=== PATIENT | female | born 1985 | race Caucasian/White ===

== ENCOUNTER → 2022-12-29 | Outpatient (CLI) | payer BC ==
--- NOTE | 2022-12-29 10:13 | MM ---
Reason for Exam: Clinical finding. Indicated Problems: Pain of the right side (Focal) for 6 Week(s) : 10 oclock. Patient History: Menarche at age 11. First Full-Term at age 22. Patient has history of breast feeding. Maternal grandmother had breast cancer, age 48. Last menstrual period: 12/22/2022 Risk Values: Allison 5 year model risk: 0.4%. NCI Lifetime model risk: 10.0%. Tissue Density: There are scattered fibroglandular densities. Findings: Analyzed By CAD. There is slight increased asymmetric density in the anterior lateral left breast. There is a group of punctate calcifications in the 6:00 position anterior right breast 2 cm from the nipple. Magnification views were obtained. Right mediolateral view was obtained. Stereotactic core biopsy is recommended. Overall Assessment: Suspicious, BI-RAD 4 Management: Stereotactic Core Biopsy of the right breast. A negative mammogram report should not preclude additional follow up of suspicious palpable abnormalities. Patient should continue monthly self breast exam. A clinical breast exam by your physician is recommended on an annual basis and results should be correlated with mammographic findings. Electronically signed and approved by: Alexander Owen D.O. Radiologis
== END | disposition home or self-care (01) ==
LOC: RADMAMWWP 09:18
PROVIDERS: ATTEND Family Medicine
DX: R92.8 Other abnormal and inconclusive findings on diagnostic imaging of breast (principal); N63.12 Unspecified lump in the right breast, upper inner quadrant; Z80.3 Family history of malignant neoplasm of breast
CPT/HCPCS: 77062; 77066

== ENCOUNTER → 2023-01-20 | Outpatient (CLI) | payer BC ==
[2023-01-20 07:38] VITALS: BP 134/97; PULSE 90; RESP 17; TEMP 98.9
--- NOTE | 2023-01-20 08:23 | P.PCN ---
Date of Procedure: 01/20/23 Preoperative Diagnosis: Microcalcifications of concern right breast Postoperative Diagnosis: Same/radiograph of the specimen reveals microcalcifications of concern Procedure(s) Performed: Right breast stereotactic core biopsy Anesthesia: local Surgeon: Lynn Lo Pathology: other (Right breast tissue) Condition: stable Disposition: same day Indications for Procedure: Microcalcifications of concern right breast Operative Findings: Radiographic specimen reveals microcalcifications of concern Description of Procedure: The patient was seen and examined; risk of the procedure were discussed with the patient. She wished to proceed with a right breast stereotactic core biopsy. The patient was taken to the stereotactic core biopsy room. She was positioned prone on the low rad table. The lesion was in the inferior lateral aspect of the right breast. A lateral to medial approach was utilized. A thermodynamics engineer film was obtained. The lesion of concern was identified. The lesion was targeted. The breast was prepped using Betadine. 10 mL of 1% lidocaine and 20 mL of 0.5% lidocaine were used to anesthetize the area of concern. A 9-gauge vacuum- assisted core attained biopsy needle was driven to the correct coordinates. A prefire film was obtained. The needle was noted to be in the correct location. The needle was fired. A post fire film was obtained. The needle was noted to be in the correct location. 14 core biopsy specimens were obtained. The specimen was radiographed. The microcalcifications of concern were noted to be in the specimen. A secure shon top hat clip was placed. Radiograph was obtained. The clip was noted to be in the correct location. The specimen was sent to pathology. The patient will follow up with Dr. Arnold. The patient tolerated the procedure in stable condition.
== END ==
LOC: WWCWWP 07:07
PROVIDERS: ATTEND Surgery
DX: R92.0 Mammographic microcalcification found on diagnostic imaging of breast (principal)

== ENCOUNTER → 2023-01-20 | Day surgery (SDC) | payer BC ==
--- NOTE | 2023-01-20 07:52 | P.GSHP ---
History of Present Illness H&P Date: 01/20/23 Chief Complaint: Abnormal right breast mammogram Vivi is a 37-year-old white female seen in consultation for Dr. Law regarding a mammographic abnormality in her right breast. She underwent a bilateral diagnostic mammogram and [id number]. This revealed a slight increased asymmetric density in the anterior lateral left breast. There was a group of punctate calcifications in the 6:00 anterior right breast 2 cm from the nipple. Magnification views were obtained. Await mediolateral view was obtained. Stereotactic core biopsy was recommended. The patient has not noted any new lumps masses or nodules of concern in either breast. The patient was seen by he r primary care physician who can consider that he may have felt some nodularity in the lateral aspect of the right breast. For that reason a mammogram was performed. This is her first mammogram. She is not complaining of any nipple discharge or skin changes. She is not complaining of any recent trauma or infection in the breast. She's never had any surgery on the breast. Caffeine: none nicotine: none chocolate: none BCP: stopped 2 years ago used them for 2 years Family history: mother: leukemia two forms father: being worked up for ? stomach cancer paternal grandfather: lung cancer maternal grandmother: breast cancer metastatic Hormonal History: menarche: 11 , breast fed: yes, age at first : 23 periods regular LMP: 1 month Surgical History: none Medical History: diabetes high cholesterol Socil History: nicotine: none alcohol: none drugs: none - Constitutional Constitutional: Denies chills, Denies fever - EENT Eyes: bilateral blurred vision (needs new glasses), denies pain Ears: deny: decreased hearing Ears, nose, mouth and throat: Reports headache, Denies sore throat - Breasts Breasts: bilateral: as per HPI - Cardiovascular Cardiovascular: Denies chest pain, Denies shortness of breath - Respiratory Respiratory: Denies cough, Denies 7 - Gastrointestinal Gastrointestinal: Denies abdominal pain, Denies diarrhea, Denies nausea, Denies vomiting - Genitourinary (Female) Genitourinary: Denies dysuria, Denies hematuria - Menstruation Menstruation: Reports period normal - Musculoskeletal Musculoskeletal: Denies myalgias - Integumentary Comment: exczema Integumentary: Denies pruritus, Denies rash - Neurological Neurological: Denies numbness, Denies weakness - Psychiatric Psychiatric: Denies anxiety, Denies depression - Endocrine Endocrine: Denies fatigue, Denies weight change - Hematologic/Lymphatic Comment: low platelets - Allergic/Immunologic Allergic/Immunologic: Reports seasonal allergies Past Medical History Past Medical History: No Reported History History of Any Multi-Drug Resistant Organisms: None Reported Past Surgical History: No Surgical Hx Reported Additional Past Anesthesia/Blood Transfusion Reaction / Comment(s): never had anesthesia Past Psychological History: Anxiety Additional Psychological History / Comment(s): no meds Smoking Status: Never smoker Past Alcohol Use History: None Reported Past Drug Use History: None Reported Medications and Allergies Home Medications Medication Instructions Recorded Confirmed Type Atorvastatin [Lipitor] 10 mg PO DAILY 01/20/23 01/20/23 History metFORMIN HCL 500 mg PO DAILY 01/20/23 01/20/23 History Allergies Allergy/AdvReac Type Severity Reaction Status Date / Time No Known Allergies Allergy Verified 01/20/23 07:29 Surgical - Exam - General moderate distress - Eyes normal ocular movement - Neck trachea midline - Respiratory normal respiratory effort, clear to auscultation - Cardiovascular Rhythm: regular Heart Sounds: normal: S1, S2 - Abdomen Abdomen: soft, non tender, no guarding, no rigid, no rebound - Integumentary normal turgor - Neurologic no disoriented, no combative - Musculoskeletal normal gait, normal posture - Psychiatric oriented to time, oriented to person, oriented to place, speech is normal, memory intact Breast Exam: BRA: 42D Inspection: bilateral grade 3 ptosis, right breast slightly larger than left breast palpation: right breast: Multi-positional exam no dominant masses or nodules of concern Right axilla: No adenopathy of concern Left breast: Multi-positional exam no dominant masses or nodules of concern Left axilla: No adenopathy of concern Results Mammogram personally reviewed with radiology, microcalcifications of concern noted in the right breast in the lower midportion Assessment and Plan Assessment: Impression: Microcalcifications of concern right breast Fibrocystic breast changes Plan: Stereotactic core biopsy right breast Risk and benefits of the procedure discussed with the patient. Risks include but are not limited to bleeding, infection, reaction to the anesthetic. If tissue specimen is felt to be discordant and further tissue acquisition may be necessary. The patient understands and wishes to proceed. CC: Dr. Law
--- NOTE | 2023-01-21 13:10 | MM ---
Date of Procedure: 01/20/23 Preoperative Diagnosis: Microcalcifications of concern right breast Postoperative Diagnosis: Same/radiograph of the specimen reveals microcalcifications of concern Procedure(s) Performed: Right breast stereotactic core biopsy Anesthesia: local Surgeon: Lynn Lo Pathology: other (Right breast tissue) Condition: stable Disposition: same day Indications for Procedure: Microcalcifications of concern right breast Operative Findings: Radiographic specimen reveals microcalcifications of concern Description of Procedure: The patient was seen and examined; risk of the procedure were discussed with the patient. She wished to proceed with a right breast stereotactic core biopsy. The patient was taken to the stereotactic core biopsy room. She was positioned prone on the low rad table. The lesion was in the inferior lateral aspect of the right breast. A lateral to medial approach was utilized. A mental telepathist film was obtained. The lesion of concern was identified. The lesion was targeted. The breast was prepped using Betadine. 10 mL of 1% lidocaine and 20 mL of 0.5% lidocaine were used to anesthetize the area of concern. A 9-gauge vacuum- assisted core attained biopsy needle was driven to the correct coordinates. A prefire film was obtained. The needle was noted to be in the correct location. The needle was fired. A post fire film was obtained. The needle was noted to be in the correct location. 14 core biopsy specimens were obtained. The specimen was radiographed. The microcalcifications of concern were noted to be in the specimen. A secure shon top hat clip was placed. Radiograph was obtained. The clip was noted to be in the correct location. The specimen was sent to pathology. The patient will follow up with Dr. Arnold. The patient tolerated the procedure in stable condition. GABBY
== END ==
LOC: RADMAMWWP 07:05
PROVIDERS: ATTEND Surgery
DX: N60.11 Diffuse cystic mastopathy of right breast (principal); N60.91 Unspecified benign mammary dysplasia of right breast; N60.01 Solitary cyst of right breast
CPT/HCPCS: 88305; 19081; A4648

== ENCOUNTER → 2023-02-03 | Outpatient (CLI) | payer BC ==
[2023-02-03 15:46] VITALS: BP 136/84; PULSE 81; RESP 16; TEMP 98.3
--- NOTE | 2023-02-03 16:52 | P.PN ---
Subjective Progress Note Date: 02/03/23 Principal diagnosis: fibrocystic breast changes Vivi is status post a right breast stero biopsy on 01-20-23. Her pathology was benign concordant. She is doing well without complaints Objective - Vital Signs Vital signs: Vital Signs Temp 98.3 F 02/03/23 15:44 Pulse 81 02/03/23 15:44 Resp 16 02/03/23 15:44 BP 136/84 02/03/23 15:44 Pulse Ox 97 02/03/23 15:44 FiO2 Intake & Output 02/02/23 02/03/23 02/03/23 18:59 06:59 18:59 Weight 114.305 kg - Constitutional General appearance: Present: cooperative - EENT Eyes: Present: EOMI ENT: Present: hearing grossly normal - Neck Neck: Present: normal ROM - Respiratory Respiratory: bilateral: CTA - Cardiovascular Rhythm: regular Heart sounds: normal: S1, S2 - Integumentary Integumentary Comment(s): I've see site right breast clean and dry no evidence of infection or hematoma Integumentary: Present: normal turgor Assessment and Plan Assessment: Impression: Patient status post right breast are tactic core biopsy/benign concordant Plan: Repeat right breast mammogram in 6 months with physician exam at that time CC: Dr. Haile
== END ==
LOC: WWCWWP 15:35
PROVIDERS: ATTEND Surgery
DX: N60.12 Diffuse cystic mastopathy of left breast (principal); Z79.4 Long term (current) use of insulin; Z79.84 Long term (current) use of oral hypoglycemic drugs

== ENCOUNTER 2023-06-04 02:48 | Emergency (ER) | payer BC ==
[2023-06-04 03:00] VITALS: BP 139/92; PULSE 104; RESP 18; TEMP 98.6
[2023-06-04] MEDS ORDERED: DIPH,PERTUS(ACELL)TETVAC-LF 0.5 ML VIAL IM ONE (03:42)
--- NOTE | 2023-06-04 03:42 | ED ---
Skin/Abscess/FB HPI - General Chief complaint: Skin/Abscess/Foreign Body Stated complaint: Foreign object in lt foot Time Seen by Provider: 06/04/23 03:13 Source: patient Mode of arrival: ambulatory Limitations: no limitations - History of Present Illness Initial comments: 38-year-old female presenting with chief complaint of splinter in the left foot. Patient states that she tried to remove it at home but was unable to. She does not known her last tetanus shot was. She has full range of motion and sensation. The splinter is in the ball of the foot closest to the fifth digit. - Related Data Home Medications Medication Instructions Recorded Confirmed Atorvastatin [Lipitor] 10 mg PO DAILY 01/20/23 02/03/23 Insulin Glargine,Hum.rec.anlog 3 unit INJ DIRECTED 01/20/23 02/03/23 [Lantus Solostar Pen] metFORMIN HCL 500 mg PO DAILY 01/20/23 02/03/23 Allergies Allergy/AdvReac Type Severity Reaction Status Date / Time No Known Allergies Allergy Verified 06/04/23 02:57 Review of Systems ROS Statement: Those systems with pertinent positive or pertinent negative responses have been documented in the HPI. ROS Other: All systems not noted in ROS Statement are negative. Past Medical History Past Medical History: No Reported History History of Any Multi-Drug Resistant Organisms: None Reported Past Surgical History: No Surgical Hx Reported Additional Past Anesthesia/Blood Transfusion Reaction / Comment(s): never had anesthesia Past Psychological History: Anxiety Smoking Status: Never smoker Past Alcohol Use History: None Reported Past Drug Use History: None Reported General Exam Limitations: no limitations General appearance: alert, in no apparent distress Head exam: Present: atraumatic, normocephalic, normal inspection Eye exam: Present: normal appearance, EOMI Neck exam: Present: normal inspection, full ROM Respiratory exam: Absent: respiratory distress Neurological exam: Present: alert, oriented X3, CN II-XII intact Psychiatric exam: Present: normal affect, normal mood Skin exam: Present: other (splinter L foot) Course Vital Signs 06/04/23 02:57 Temperature 98.6 F Pulse Rate 104 H Respiratory 18 Rate Blood Pressure 139/92 O2 Sat by Pulse 98 Oximetry Medical Decision Making - Medical Decision Making Was pt. sent in by a medical professional or institution (, PA, [employer], urgent care, hospital, or [facility]...) When possible be specific @ -No Did you speak to anyone other than the patient for history (EMS, parent, family, police, friend...)? What history was obtained from this source @ -No Did you review nursing and triage notes (agree or disagree)? Why? @ -I reviewed and agree with nursing and triage notes Were old charts reviewed (outside hosp., previous admission, EMS record, old EKG, old radiological studies, urgent care reports/EKG's, [facility] records)? Report findings @ -No old charts were reviewed Differential Diagnosis (chest pain, altered mental status, abdominal pain women, abdominal pain men, vaginal bleeding, weakness, fever, dyspnea, syncope, headache, dizziness, GI bleed, back pain, seizure, CVA, palpatations, mental health, musculoskeletal)? @ -not applicable EKG interpreted by me (3pts min.). @ -As above X-rays interpreted by me (1pt min.). @ -None done CT interpreted by me (1pt min.). @ -None done U/S interpreted by me (1pt. min.). @ -None done What testing was considered but not performed or refused? (CT, X-rays, U/S, labs)? Why? @ -None What meds were considered but not given or refused? Why? @ -None Did you discuss the management of the patient with other professionals (professionals i.e. , PA, [employer], lab, RT, psych nurse, adoption social worker, grey tender, teacher, radiation officer, heel caser)? Give summary @ -No Was smoking cessation discussed for >3mins.? @ -No Was critical care preformed (if so, how long)? @ -No Were there social determinants of health that impacted care today? How? (Homelessness, low income, unemployed, alcoholism, drug addiction, transportation, low edu. Level, literacy, decrease access to med. care, senior living, rehab)? @ -No Was there de-escalation of care discussed even if they declined (Discuss DNR or withdrawal of care, Hospice)? DNR status @ -No What co-morbidities impacted this encounter? (DM, HTN, Smoking, COPD, CAD, Cancer, CVA, ARF, Chemo, Hep., AIDS, mental health diagnosis, sleep apnea, morbid obesity)? @ -None Was patient admitted / discharged? Hospital course, mention meds given and route, prescriptions, significant lab abnormalities, going to OR and other pertinent info. @ -30-year-old female with splinter in the left foot. Foot is anesthetized with 1% lidocaine and the splinter is removed. Tetanus is updated today. Educated on wound care and signs of infection. Follow-up with PCP. Report back to ER with any new or worsening symptoms. Discussed return parameters and answered all questions. Patient conveyed verbal understanding and agreed to the plan. I discussed this case in detail with my attending Dr. Coleman Undiagnosed new problem with uncertain prognosis? @ -No Drug Therapy requiring intensive monitoring for toxicity (Heparin, Nitro, Insulin, Cardizem)? @ -No Were any procedures done? @ -No Diagnosis/symptom? @ -Splinter Acute, or Chronic, or Acute on Chronic? @ -acute Uncomplicated (without systemic symptoms) or Complicated (systemic symptoms)? @ -Uncomplicated Side effects of treatment? @ -No Exacerbation, Progression, or Severe Exacerbation? @ -No Poses a threat to life or bodily function? How? (Chest pain, [place], [place], pneumonia, PE, COPD, DKA, ARF, appy, cholecystitis, CVA, Diverticulitis, Homicidal, Suicidal, threat to staff... and all critical care pts) @ -No Disposition Clinical Impression: Splinter of foot Disposition: HOME SELF-CARE Condition: Good Additional Instructions: Monitor for signs of infection, including but not limited to redness, swelling, warmth, tenderness. Report back to ER with any new or worsening symptoms. Is patient prescribed a controlled substance at d/c from ED?: No Referrals: Domo Ponce DO [Primary Care Provider] - 1-2 days Time of Disposition: 03:42
== END 2023-06-04 04:25 | disposition home or self-care (01) ==
LOC: EC 02:48
DX: S90.852A Superficial foreign body, left foot, initial encounter (principal); Z86.59 Personal history of other mental and behavioral disorders; Z23 Encounter for immunization; W45.8XXA Other foreign body or object entering through skin, initial encounter
CPT/HCPCS: 90471; 90715; 99283